=== PATIENT | female | born 1950 | race Caucasian/White ===

== ENCOUNTER 2016-09-17 15:16 | Emergency (ER) | payer OTHER ==
[2016-09-17 14:59] LABS: BASOPHIL# 0.1 X10e3 (0-0.3); BASOPHIL% 1.5 % (0-2.5); DIFF IND NO; EOSINOPHIL# 0.1 X10e3 (0-0.7); EOSINOPHIL% 1.9 % (0.0-7.0); HEMOGLOBIN 13.3 gm/dL (12.0-16.0); LYMPHOCYTE# 1.7 X10e3 (1.0-3.5); LYMPHOCYTE% 23.3 % (17.0-45.0); MEAN CELL VOLUME 86.9 FL (83-96); MEAN CORPUSCULAR HEMOGLOBIN 28.2 PG (28-34); MEAN CORPUSCULAR HGB CONC 32.4 g/dL (30-36); MEAN PLATELET VOLUME 9.6 FL (6.5-11.5); MONOCYTE# 0.2 X10e3 (0-1.0); MONOCYTE% 3.2 % (3.0-12.0); NEUTROPHIL# 5.1 X10e3 (1.5-7.1); NEUTROPHIL% 70.1 % (40-75); PLATELET COUNT 167 X10e3 (140-420); RED BLOOD COUNT 4.72 X10e (3.90-5.30); WHITE BLOOD COUNT 7.2 X10e3 (4.0-10.5)
[~2016-09-17 15:16] MED LIST: ADDERALL20 MG PO; ASPIRIN EC81 M1 PO; CYCLOBENZAPRINE5 MG PO; DEXILANT30 MG PO; GABAPENTIN600 MG PO; HYDRALAZINE HCL50 MG PO; HYDROCODON-ACE1 EAC5 PO; IMDUR-ER60 MG PO; INSULIN DETEMIR; INVOKANA300 MG PO; K-DUR20 ME1 PO; K-DUR20 ME2 PO; KLONOPIN0.5 MG PO; LASIX PO; LEVEMIR SQ; LEVEMIR100 U/ML SUBQ; LIPITOR20 MG PO; LISINOPRIL10 MG PO; LISINOPRIL20 MG PO; LOPRESSOR PO; METOPROLOL TAR25 MG PO; MS CONTIN100 MG PO; MUCINEX DM ER1 EACH PO; NEURONTIN300 MG PO; NOVOLOG; NOVOLOG100 U/ML; NOVOLOG100 UNITS/; PRINIVIL40 MG PO; WELLBUTRIN SR150 MG PO
[2016-09-17 15:28] LABS: BLOOD UREA NITROGEN 13 mg/dL (9-23); BUN/CREATININE RATIO 16.25; CALCIUM SERUM 9.5 mg/dL (8.4-10.2); CARBON DIOXIDE 25 mmol/L (22-31); CHLORIDE 105 mmol/L (100-111); CREATININE SERUM 0.8 mg/dL (0.6-1.4); GLOM FILT RATE Estimated ABOVE60 mL/min (>60); GLUCOSE FASTING 136 mg/dL (70-110); POTASSIUM 3.8 mmol/L (3.5-5.1); SODIUM 141 mmol/L (135-145)
[2016-09-17 16:47] LABS: URINE SOURCE CLEAN CATCH
[2016-09-17 17:05] LABS: URINE APPEARANCE CLEAR; URINE BILIRUBIN NEG (NEG); URINE BLOOD NEG (NEG); URINE COLOR YELLOW; URINE GLUCOSE >1000 MG/DL (NEG); URINE KETONE NEG (NEG); URINE LEUKOCYTE ESTERASE 1+ (NEG); URINE NITRATE NEG (NEG); URINE PH 5.5 (5-8); URINE PROTEIN NEG (NEG); URINE SPECIFIC GRAVITY 1.016 (1.003-1.035); URINE UROBILINOGEN 0.2 MG/DL (NEG)
[2016-09-17 17:11] LABS: CULTURE INDICATED? YES; URBCS1 AUWI 0-2 /[HPF] (0-2); URINE BACTERIA AUWI NEG (NEGATIVE); URINE SQUAMOUS EPITHELIAL CELL NONE SEEN /[HPF]
== END 2016-09-17 19:12 | disposition home or self-care (01) ==
LOC: CED 15:16
PROVIDERS: Emergency Medicine
DX: T38.3X1A Poisoning by insulin and oral hypoglycemic [antidiabetic] drugs, accidental (unintentional), initial encounter (principal); N30.90 Cystitis, unspecified without hematuria; I10 Essential (primary) hypertension; E78.5 Hyperlipidemia, unspecified; K21.9 Gastro-esophageal reflux disease without esophagitis; E11.9 Type 2 diabetes mellitus without complications; Z90.49 Acquired absence of other specified parts of digestive tract; Z90.710 Acquired absence of both cervix and uterus; Z98.890 Other specified postprocedural states; Y92.9 Unspecified place or not applicable
CPT/HCPCS: 36415; 80048; 81003; 82947; 85025; 87086; 99283

== ENCOUNTER 2017-02-20 23:41 | Observation (INO) | payer MEDICARE ==
[~2017-02-20] VITALS: Ht 157.5 cm; Wt 95.3 kg
--- NOTE | ~2017-02-20 | CO ---
Unit #: [id number] #: [id number] Patient: BERTIN HUERTA [id number] [facility] [address], [place] [address] [id number] MR#: [id number] NAME: BERTIN HUERTA. ROOM: 553 Age: 66 Sex: F Admission Date: 02/21/2017 : 1950 Attending Physician: Jovan Lowery M.D. Primary Care Physician: [facility] Consultation Date: 02/23/2017 CONSULTATION REPORT REASON FOR CONSULTATION Followup. DISCUSSION Ms. Stevenson is a 66-year-old white female, seen in room 553, bed 1 on 02/23/2017 [facility]. The patient reports making progress, sleeping good, decrease in anxiety. The patient denied any thoughts of harming to self or others or any psychotic symptom. The patient denied any problem with sleep or any side effects from medication. Vital signs; temperature 98.1, pulse 68, respirations 18, blood pressure 123/61, and oxygen saturation 98%. REVIEW OF SYSTEMS A complete review of systems is unremarkable. MENTAL STATUS EXAMINATION General appearance; the patient dressed casually, lying comfortably in bed, dressed in hospital attire. Attention span and concentration, fair. Speech, regular rate and coherent. Oriented in time, place, and person. Mood and affect; sad, dysphoric, but able to smile appropriately. Thought process, coherent. Thought content, the patient denied any thoughts of harming to self or others. Recent and remote memory, fair. Language, intact. Fund of knowledge, fair. Insight and judgment, fair to slightly impaired. DIAGNOSES Psychiatric: Major depressive disorder, recurrent, severe, F33.2; anxiety disorder, not otherwise specified, F40.01. ASSESSMENT/PLAN 1. Supportive psychotherapy and psychoeducation provided to the patient. 2. Educated about benefits and side effects of medication and course and prognosis of illness. 3. Advised to continue with current medication and the patient to follow up with the outpatient psychiatrist and also given information about [facility] outpatient program, telephone #[phone]. Please feel free to call if any questions, telephone #[phone]. Dictated by... Edgar Lozada/merry Unit #: [id number] #: [id number] Patient: BERTIN HUERTA TD: 02/24/2017 08:31 JOB #: [id number] CONSULTATION REPORT Page 1 of 1 X Ki Cheng MD X CONSULTATION REPORT
--- NOTE | ~2017-02-20 | DS ---
Unit #: [id number] #: [id number] Patient: BERTIN HUERTA [id number] [address] [address] [id number] I MR#: [id number] NAME: BERTIN HUERTA. ROOM: 553 Age: 66 Sex: F Admission Date: 02/21/2017 : 1950 Discharge Date: 02/23/2017 Attending Physician: Jovan Lowery M.D. Primary Care Physician: [facility]. DISCHARGE SUMMARY DISCHARGE DIAGNOSES 1. Resting and exertional angina, ruled out for myocardial infarction. 2. Coronary artery disease, status post cardiac catheterization on 02/22/[address] Lowery, which revealed LV normal. Left main normal. LAD 100% at first septal compensation expert. LARA to LAD patent with small, but normal distal vessel. Mid left circumflex 60% to 70%. Patent stent in the second obtuse marginal. Mid right coronary artery 50%. PDA less than 2 mm in size with 80% stenosis. Saphenous vein graft to first diagonal patent. Saphenous vein graft to second diagonal patent. Medical management. If pain continues, the patient could be considered for a stress Cardiolite. If distribution of ischemia, could undergo PCI and stent in the mid left circumflex. 3. Previous coronary artery bypass grafting x3 after myocardial infarction, November 2012. Previous PCI and stent in the obtuse marginal in 2014. 4. Acute on chronic systolic congestive heart failure, not compensated. 5. Hypertension. 6. Hyperlipidemia. 7. Diabetes mellitus type 2. 8. Obesity with a BMI of 40. 9. Hypokalemia, resolved. 10. Major depressive disorder. 11. Anxiety. 12. History of cardiac ablation, 2006. DISCHARGE MEDICATIONS 1. Neurontin 600 mg p.o. t.i.d. 2. Amitriptyline 25 mg take 2 tabs by mouth daily. 3. Wellbutrin 150 mg p.o. daily. 4. Lexapro 10 mg p.o. at bedtime. 5. Atorvastatin 80 mg p.o. at bedtime. 6. KlonoPIN 0.5 mg p.o. p.r.n. 7. Norvasc 5 mg p.o. daily. 8. Metoprolol tartrate 50 mg p.o. b.i.d. 9. Lasix 40 mg p.o. daily. 10. Mucinex 120 mg p.o. b.i.d. 11. Hydralazine 50 mg p.o. q.i.d. 12. Lisinopril 40 mg p.o. daily. 13. Levemir to be dosed by Dr. Rodriguez with endocrinology. 14. NovoLog to be dosed by Dr. Rodriguez with endocrinology. 15. Aspirin 81 mg p.o. daily. 16. Hydrocodone/acetaminophen 10 mg p.o. q.i.d. as needed for pain. 17. Ranexa 500 mg p.o. b.i.d. 18. Effient 10 mg p.o. daily. Unit #: [id number] #: [id number] Patient: BERTIN HUERTA 19. Dexilant 30 mg p.o. daily. 20. Potassium chloride 20 mEq p.o. daily. 21. Imdur ER 60 mg p.o. daily. 22. Nitroglycerin 0.4 mg sublingual as needed for chest pain. HOSPITAL COURSE This is a 66-year-old white female known to Dr. Quispe with a past medical history of coronary artery disease with a previous myocardial infarction, status post coronary artery bypass grafting x3 in 2012. The patient had a cardiac catheterization in 2014 where her grafts were patent. She did have a 99% stenosis in the posterior marginal branch of the left circumflex and underwent angioplasty and drug-eluting stent placement. Additional past medical history includes hypertension, hyperlipidemia, and diabetes. There is also reports of cardiac ablation in 2006. The patient presented to the hospital with complaints of chest pain and jaw pain. Please see details in H and P. She also had some shortness of breath and occasional lower extremity edema. Initial cardiac enzymes were negative. EKG revealed no acute findings, but there was an old inferior infarct. She was admitted for angina and worry for progression of coronary artery disease. Cardiac enzymes were trended and she ruled out for myocardial infarction. She was anticoagulated with Lovenox in addition to aspirin and Effient. She was placed on fluid restriction and IV diuretics due to volume overload and acute on chronic congestive heart failure. Her statin was increased to full dose. Dr. Rodriguez was consulted for hyperglycemia and diabetes. Dr. Cheng was consulted for anxiety and depression and her medications were adjusted. Her potassium was initially low and supplemented. Potassium level improved. She was placed on nitrates in addition to the above medications. She was recommended for cardiac catheterization. She underwent cardiac catheterization on 02/22/2017. Please see details above. She was found to have 60% to 70% stenosis in the mid left circumflex. Mid right coronary artery was 50%. PDA was 80%, but less than 2 mm in size. She was continued on medical management. If chest pain continues, she could undergo a Cardiolite stress test. If distribution of ischemia, she could undergo PCI and stent to the mid left circumflex. Patient tolerated the procedure well without complication. She was kept overnight for observation. Her Lasix was changed to oral dosing and her congestive heart failure is now compensated. There are no complaints of chest pain or shortness of breath. Her right groin is soft without hematoma. Telemetry reveals no sustained arrhythmias. She was started on Ranexa to prevent angina. She is also on oral nitrates. One month of samples for Ranexa will be provided to the patient. She is stable and will be discharged home today. Dr. Rodriguez with endocrinology will need to review her insulin dosing. She is instructed to follow up with Dr. Rodriguez in 2-4 weeks as well as Dr. Quispe on March 24 at 1:30 p.m. She can follow with psychiatry at [facility] or her provider of choice. Post cath instructions have been provided and she verbalizes understanding. Medications have been discussed as well. Patient is in stable condition for discharge. CONSULTANTS 1. Dr. Cheng with psychiatry. 2. Dr. Rodriguez with endocrinology. DIAGNOSTIC STUDIES Unit #: [id number] #: [id number] Patient: BERTIN HUERTA LABORATORY: White blood cell count 6.8, hemoglobin 13.2, hematocrit 39.5, platelets 145. Sodium 140, potassium 4.5, chloride 104, CO2 25, BUN 20, creatinine 0.9, glucose 278. BNP 55. Hemoglobin A1c 8.4. INR 1. Troponin 0.05 and 0.05. IMAGING: Chest x-ray on 02/21/2017 revealed stable cardiomegaly with elevation of right hemidiaphragm. CARDIOVASCULAR: Electrocardiogram reveals sinus rhythm with a ventricular rate of 67 beats per minute. No acute ST or T wave changes. QTC mildly prolonged at 523 milliseconds. PHYSICAL EXAMINATION VITAL SIGNS: Temperature 98.1, pulse 68, blood pressure 123/61. CONSTITUTIONAL: This is a 66-year-old, white female in no acute distress. SKIN: Warm and dry. NECK: Supple. No jugular vein distention. No hepatojugular reflux. Normal carotid upstrokes. No carotid bruits auscultated. HEART: S1 and S2. Regular rate and rhythm. No murmurs, rubs, or gallops. LUNGS: Bilateral breath sounds have good air entry throughout lung carias. Respirations even and unlabored. No rales, rhonchi, or wheezes. ABDOMEN: Obese, soft, nontender, and nondistended. Positive bowel sounds auscultated in four quadrants. No ascites noted. EXTREMITIES: Bilateral extremities have no pretibial pitting edema. DP pulses are 2+. Capillary refill two seconds. DISCHARGE INSTRUCTIONS 1. Patient will be discharged home today. 2. Follow up with primary care in 1-2 weeks. 3. Follow up with Dr. Rodriguez in 2-4 weeks. 4. Follow up with psychiatry as needed. 5. Follow up with Dr. Quispe on March 24 at 1:30 p.m. 6. Post cath instructions provided. 7. The patient will be provided one month of samples for Ranexa. 8. She has been instructed to seek medical attention for worsening chest pain. 9. She has been advised to exercise 30 minutes a day, 5 days a week. 10. She would benefit from weight loss. 11. The patient would benefit from hemoglobin A1c in 3 months. Dictated by... Vane Auguste APRN for Edgar Samayoa TD: 02/25/2017 07:41 JOB #: [id number] Unit #: [id number] #: [id number] Patient: BERTIN HUERTA DISCHARGE SUMMARY Page 1 of 1 X X DISCHARGE SUMMARY
--- NOTE | ~2017-02-20 | CO ---
Unit #: [id number] #: [id number] Patient: BERTIN HUERTA [id number] [address] [address] [id number] I MR#: [id number] NAME: BERTIN HUERTA. ROOM: [facility] Age: 66 Sex: F Admission Date: 02/21/2017 : 1950 Attending Physician: Jovan Lowery M.D. Primary Care Physician: [facility]. CONSULTATION REPORT REASON FOR CONSULT Uncontrolled diabetes mellitus. This 66-year-old female, who has a history of coronary artery disease status post CABG x3, morbid obesity, hypertension, hyperlipidemia, fibromyalgia, chronic pain syndrome, has been admitted with chest tightness and dyspnea on exertion, unable to walk even some mild distances. During her stay in the hospital, her blood sugar has been elevated. I have been asked to see the patient for further management. MEDICAL HISTORY See HPI. PAST SURGICAL HISTORY 1. CABG. 2. Carpal tunnel surgery. 3. Tonsillectomy. 4. Hysterectomy. 5. Cholecystectomy. 6. Cervical spine fusion x2. SOCIAL HISTORY The patient is . Quit tobacco 30 years ago. Declines alcohol. FAMILY HISTORY Coronary artery disease. ALLERGIES None known. MEDICATIONS Medication list is reviewed. The patient has been takin. Lantus 68 units twice daily. 2. NovoLog per sliding scale. 3. Aspirin 81 mg daily. 4. Lipitor 20 mg daily. 5. Wellbutrin 300 mg daily. 6. Clonazepam. 7. Dexilant. 8. Furosemide. 9. Neurontin. 10. Hydralazine. 11. Imdur 60 mg daily. 12. Lisinopril 40 mg daily. Unit #: [id number] #: [id number] Patient: BERTIN HUERTA 13. Metoprolol. 14. Potassium. 15. Effient. REVIEW OF SYSTEM CONSTITUTIONAL: No fever or chills. CARDIAC: No chest pain, palpitations. HEENT: Pupils equal, reactive to light. RESPIRATION: Shortness of air on exertion. No cough or sputum. GI: No nausea, vomiting, abdominal pain. : No frequency, dysuria. PHYSICAL EXAMINATION GENERAL: She is awake, alert, oriented to time, place and person. VITAL SIGNS: Stable, afebrile. HEENT: EOMI. Pupils equally react to light. NECK: Supple. No thyromegaly noted. CHEST: Good air entry. CVS: Regular rhythm. S1 and S2. No murmurs. ABDOMEN: Soft, obese. Bowel sounds positive. EXTREMITIES: No edema noted. DIAGNOSTIC STUDIES LABORATORY: Labs were reviewed. A1c is not available. BUN and creatinine within normal limits. Calcium is 9.1, potassium 4.5. ASSESSMENT 1. Type 2 diabetes mellitus, uncontrolled. 2. Coronary artery disease, status post CABG and stent placement. 3. Morbid obesity. PLAN Will start patient on Levemir 50 units subcu twice daily. Add NovoLog 10 units each meal to cover with supplemental sliding scale. Accu-Cheks a.c. and h.s. She is definitely a good candidate for metformin which can be added 48 hours after the discharge since patient had a cardiac cath done today. Thanks. Will continue to follow the patient for further management. Dictated by... Edgar Vazquez/yamilex TD: 02/23/2017 10:20 JOB #: [id number] Unit #: [id number] #: [id number] Patient: BERTIN HUERTA CONSULTATION REPORT Page 1 of 1 X Augusta Rodriguez MD X CONSULTATION REPORT
--- NOTE | ~2017-02-20 | EKG ---
PATIENT: BERTIN HUERTA UNIT #: [id number] Ventricular Rate: 67 BPM Atrial Rate: 67 BPM P-R Interval: 182 ms QRS Duration: 116 ms Q-T Interval: 486 ms QTC Calculation(Bezet): 513 ms P [place]: 42 degrees Calculated R [place]: -7 degrees Calculated T [place]: 31 degrees Diagnosis Line: Normal sinus rhythm Diagnosis Line: Prolonged QT Diagnosis Line: Abnormal ECG Diagnosis Line: When compared with ECG of 21-FEB-2017 07:56, Diagnosis Line: No significant change was found Diagnosis Line: Confirmed by SAKSHI SANTOS MD ([id number]) on 02/22/2017 Diagnosis Line: 6:28:24 PM INTERPRETING MD: TOM GOMES
--- NOTE | ~2017-02-20 | HP ---
Unit #: [id number] #: [id number] Patient: BERTIN HUERTA [id number] [address] [place], [place] [address] [id number] I MR#: [id number] NAME: BERTIN HUERTA ROOM: 553 Age: 66 Sex: F Admission Date: 02/21/2017 : 1950 Attending Physician: Angelica Lowery M.D. Primary Care Physician: [facility]. HISTORY AND PHYSICAL HISTORY OF PRESENT ILLNESS This is a 66-year-old white female who is known to Dr. Quispe who has a history of coronary artery disease where she had a myocardial infarction in 2012 and underwent coronary artery bypass graft x3. Her last cardiac catheterization was in 2014 where her grafts were found to be patent. She had 99% stenosis of the posterior marginal branch of the circumflex artery and underwent angioplasty with drug-eluting stent. At that time, the right coronary had 70% distal stenosis that was not dilated. She is known to have hypertension, hyperlipidemia, and cardiac ablation in 2006. The patient comes to the emergency room with the complaint of chest and jaw pain. She said she has had jaw pain for the past two days that has been intermittent. Her jaw pain was worse last night. She woke up from sleep at approximately 10 p.m. and had left anterior chest heaviness with tightness that she states felt like a "belt" was around her chest. She has associated dyspnea, nausea, and bilateral jaw pain. She has been unable to walk any distance or do any chores around the house because of shortness of breath and weakness. Her last episode was when she walked across the street to get the mail and became so weak and dyspneic that she had to stop to rest. She has occasional lower extremity edema and occasional palpitations, but denies paroxysmal nocturnal dyspnea or orthopnea. She has been sleeping upright in a recliner recently. Because her chest pain was ongoing, she came to the emergency room for evaluation where she was treated with sublingual nitroglycerin that relieved her pain. Her troponin has been initially negative. Electrocardiogram shows no acute ischemic changes. EKG is noted for an old inferior infarct. PAST MEDICAL HISTORY 1. A 2D echocardiogram on April 15, 2014, showed an ejection fraction of 40% to 45% with mild to moderate mitral regurgitation. 2. Myocardial infarction in November 2012, status post coronary artery bypass graft x3. 3. Cardiac catheterization on May 21, 2015, showed left main normal, LAD had 99% proximal stenosis, patent sequential LARA to the LAD second diagonal branch, patent saphenous vein graft to the high diagonal branch, kake circumflex artery first marginal branch with 99% stenosis, patent saphenous vein graft to the first obtuse marginal branch, posterior marginal branch with 99% stenosis, distal right coronary artery with 70% and distal PDA 70%, and ejection fraction of 50% to 55%. 4. Status post PCI with drug-eluting stent to the posterior marginal branch of the circumflex artery May 21, 2015, per Dr. Lowery, at [facility]. 5. Hypertension. 6. Hyperlipidemia. Unit #: [id number] #: [id number] Patient: BERTIN HUERTA 7. Cardiac ablation in [address] Taylor, no details available. 8. Chronic pain syndrome. 9. Fibromyalgia. 10. Former smoker. PAST SURGICAL HISTORY 1. Coronary artery bypass grafting (1) in November 2012. 2. Carpal tunnel release. 3. Tonsillectomy. 4. Hysterectomy. 5. Cholecystectomy. 6. Thumb surgery. 7. Cervical spinal fusion x2. SOCIAL HISTORY Patient is . She quit smoking 30 years ago. She denies illicit drug and alcohol use. FAMILY HISTORY She had a brother who had a myocardial infarction in the past. ALLERGIES No known drug allergies. HOME MEDICATIONS 1. Amitriptyline 25 mg daily. 2. Aspirin 81 mg daily. 3. Lipitor 20 mg daily. 4. Wellbutrin 300 mg daily. 5. Clonazepam 0.5 mg b.i.d. 6. Dexilant 30 mg daily. 7. Furosemide 40 mg b.i.d. 8. Neurontin 600 mg t.i.d. 9. Guaifenesin 1200 mg b.i.d. 10. Hydralazine 50 mg q.i.d. 11. Hydrocodone and acetaminophen 10/325 q.i.d. p.r.n. 12. Imdur 60 mg daily. 13. Lisinopril 40 mg daily. 14. Metoprolol tartrate 25 mg b.i.d. 15. Potassium bicarbonate and citric acid 20 mg daily. 16. Effient 10 mg daily. REVIEW OF SYSTEMS CONSTITUTIONAL: Negative for fever or chills. Has no weight gain or weight loss. HEENT: No headache, hearing or visual changes, or difficulty with swallowing. Negative for dizziness. CARDIOVASCULAR: Has chest pain as described in the HPI. Reports occasional palpitations. No paroxysmal nocturnal dyspnea or orthopnea. Denies syncope or near syncope. RESPIRATORY: Reports dyspnea at rest that is worse on exertion. No cough or hemoptysis. GASTROINTESTINAL: Positive for nausea that accompanies chest pain. No hematochezia, hematemesis, or melena. Denies abdominal pain. EXTREMITIES: Occasional lower extremity edema. PHYSICAL EXAMINATION VITAL SIGNS: Blood pressure 154/72, heart rate 79, and temperature 97.5. Unit #: [id number] #: [id number] Patient: BERTIN HUERTA BMI is 40. GENERAL: This is a 66-year-old obese white female who is in no acute respiratory distress. NEUROLOGICAL: She is awake, alert, and oriented, without focal weaknesses. NECK: Trachea is midline. No thyromegaly or lymphadenopathy. No jugular venous distention. HEART: S1 and S2 heart sounds normal. No murmurs, rubs, or clicks. Regular rate and rhythm. LUNGS: With fine crackles at both lung bases. ABDOMEN: Soft and nontender with bowel sounds present. EXTREMITIES: Without leg edema. SKIN: Warm and dry. DIAGNOSTIC STUDIES LABORATORY: Glucose 236, BUN 19, creatinine 0.8, sodium 138, and potassium 3.2. Troponin less than 0.05 x2 and less than 0.03. BNP 55. White count 7, hemoglobin 13.1, hematocrit 39.2, and platelet count is 161,000. IMAGING: Chest x-ray noted for mild vascular congestion. CARDIOLOGY: EKG shows normal sinus rhythm with a rate of 72 beats per minute with Q-waves noted in the inferior leads with questionable old inferior infarct. QTc prolongation 494 msec. IMPRESSION 1. Rest and exertional angina. 2. Status post coronary artery bypass graft x3 after myocardial infarction in November 2012. 3. Percutaneous coronary intervention with stent to the OM in 2014. 4. Acute on chronic systolic heart failure. 5. Hypertension. 6. Hyperlipidemia. 7. Diabetes mellitus type 2. 8. Obesity. 9. Hypokalemia. PLAN 1. Patient's chest pain is worrisome for progression of her coronary artery disease. She has been ruled out for an acute myocardial infarction. Will need a cardiac catheterization to reevaluate her coronary anatomy. This has been discussed with the patient, and she is agreeable. 2. Anticoagulate with Lovenox in addition to aspirin and Effient. 3. Place the patient on fluid restriction and diurese with IV diuretics. 4. Will increase Lipitor to 80 mg daily. 5. Ask Dr. Rodriguez to see the patient for blood glucose control. 6. Ask Dr. Cheng to see for medication review. Amitriptyline will be discontinued. 7. Will start on nitrates. 8. Supplement potassium. 1. Dictated by Valdemar Eugene A.P.R.N. for Edgar Samayoa Unit #: [id number] #: [id number] Patient: BERTIN HUERTA TD: 02/21/2017 14:11 JOB #: [id number] HISTORY AND PHYSICAL Page 1 of 1 X Valdemar Eugene APRN X HISTORY AND PHYSICAL
--- NOTE | ~2017-02-20 | CO ---
Unit #: [id number] #: [id number] Patient: ELVA HUERTA [id number] [facility] [address] [place], [place] [address] [id number] MR#: [id number] NAME: ELVA HUERTA. ROOM: 553 Age: 66 Sex: F Admission Date: 02/21/2017 : 1950 Attending Physician: Jovan Lowery M.D. [facility] Consultation Date: 02/21/2017 CONSULTATION REPORT REASON FOR CONSULTATION Depression and anxiety. HISTORY OF PRESENT ILLNESS Ms. Elva Huerta is a 66-year-old white female, seen in room 553, bed 1 at [facility] on 02/21/2017. The patient reported that she was admitted for chest pain. Reports taking medication for depression and anxiety. Denied any suicidal or homicidal ideation, but reported under a lot of stress, severe anxiety. Currently, on Wellbutrin and Klonopin. Denied any use of any drugs or alcohol. Vital signs; temperature 97.6, heart rate 69, respirations 18, blood pressure 115/59, and oxygen saturation 97%. PAST PSYCHIATRIC HISTORY Remarkable for history of depression and anxiety. No history of any suicide attempt or any inpatient treatment. MEDICAL HISTORY Remarkable for history of myocardial infarction in 2013, CABG graft x3, cardiac cath, status post PCI, hypertension, hyperlipidemia, chronic pain syndrome, fibromyalgia, and myalgia. MEDICATIONS The patient is on amitriptyline, aspirin, Lipitor, Wellbutrin 300 mg daily, Klonopin 0.5 mg b.i.d., Dexilant, furosemide, Neurontin, hydralazine, lisinopril, and metoprolol. FAMILY HISTORY AND SOCIAL HISTORY The patient has a good support system. Reported multiple stressors at home. Denied any history of abuse. No history of any substance abuse. REVIEW OF SYSTEMS Complete review of systems is unremarkable except as mentioned above. MENTAL STATUS EXAMINATION Vital signs, please see above. General appearance, the patient dressed casually. Attention span and concentration, fair. Speech, regular rate. Oriented in time, place, and person. Mood and affect; sad, dysphoric, anxious. Thought process, coherent. Thought content, the patient denied any thoughts of harming self or others. Recent and remote memory, fair. Language, intact. Fund of knowledge, fair. Insight and judgment, fair to slightly impaired. DIAGNOSES Unit #: [id number] #: [id number] Patient: ELVA HUERTA Psychiatric: Major depressive disorder, recurrent, severe, F33.2; anxiety disorder, not otherwise specified, F40.01. ASSESSMENT/PLAN 1. Supportive psychotherapy and psychoeducation provided to the patient. 2. Educated about benefits and side effects of medication and course and prognosis of illness. 3. Recommending at this time to cut back on the dosage of Wellbutrin to 150 mg in the morning and add Lexapro 10 mg daily for depression and anxiety. Continue with the Klonopin. If needed, we will make further adjustment. Please feel free to call if any question, telephone #[phone]. The patient was also given information about outpatient program at [facility] #[phone]. Dictated by... Edgar Lozada/merry TD: 02/21/2017 22:53 JOB #: [id number] CONSULTATION REPORT Page 1 of 1 X Ki Cheng MD X CONSULTATION REPORT
--- NOTE | ~2017-02-20 | EKG ---
PATIENT: BERTIN HUERTA UNIT #: [id number] Ventricular Rate: 67 BPM Atrial Rate: 67 BPM P-R Interval: 178 ms QRS Duration: 114 ms Q-T Interval: 458 ms QTC Calculation(Bezet): 483 ms P [place]: 25 degrees Calculated R [place]: -16 degrees Calculated T [place]: 59 degrees Diagnosis Line: Normal sinus rhythm Diagnosis Line: Cannot rule out , old Inferior infarct Diagnosis Line: Nonspecific T wave abnormality Diagnosis Line: Abnormal ECG Diagnosis Line: When compared with ECG of 22-MAY-2015 08:15, Diagnosis Line: No significant change was found Diagnosis Line: Confirmed by SAKSHI SANTOS MD ([id number]) on 02/21/2017 Diagnosis Line: 3:10:09 PM INTERPRETING MD: TOM GOMES
--- NOTE | ~2017-02-20 | EKG ---
PATIENT: BERTIN HUERTA UNIT #: [id number] Ventricular Rate: 72 BPM Atrial Rate: 72 BPM P-R Interval: 178 ms QRS Duration: 112 ms Q-T Interval: 452 ms QTC Calculation(Bezet): 494 ms P [place]: 39 degrees Calculated R [place]: -15 degrees Calculated T [place]: 32 degrees Diagnosis Line: Normal sinus rhythm Diagnosis Line: Nonspecific ST abnormality Diagnosis Line: Abnormal ECG Diagnosis Line: When compared with ECG of 20-FEB-2017 23:47, Diagnosis Line: (unconfirmed) Diagnosis Line: Nonspecific T wave abnormality no longer evident Diagnosis Line: in Anterolateral leads Diagnosis Line: Confirmed by SAKSHI SANTOS MD ([id number]) on 02/21/2017 Diagnosis Line: 3:16:08 PM INTERPRETING MD: TOM GOMES
--- NOTE | ~2017-02-20 | CR72 ---
[facility] A Service of [facility] RADIOLOGY TEXT RESULTS PATIENT: BERTIN HUERTA LOCATION: [place] [address]- : [birth year] UNIT #: [id number] AGE: [address]: Jovan Lowery MD SEX: F ORDER DR: [id number] [facility] [address] [place], [place] [address] [id number] I MR#: [id number] Acc #: [id number] NAME: BERTIN HUERTA. : 1950 SEX: F STUDY DATE/TIME: 02/21/2017 0113 UNIT: [facility] ROOM: [place] [facility] STUDY DESCRIPTION: CR Chest Single View Portable Attending Physician: Angelica Lowery M.D. Ordering Physician: Pee Roldan M.D. [facility] REPORT This report is preliminary unless electronic signature is present EXAM Portable chest, 02/21 at 0113 hours. INDICATION Cough, congestion, and shortness of air today. FINDINGS AP portable chest compared with 05/19/2015. 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 Lungs are clear. No pneumothorax. There is some elevation of the right hemidiaphragm, unchanged. Patient is status post cervical fusion. IMPRESSION Stable cardiomegaly with elevation of the right hemidiaphragm. No acute findings. Dictated by... Michael Caceres Jr., M.D. THIS IS AN ELECTRONICALLY VERIFIED REPORT Michael Caceres Jr., M.D. at 02/22/2017 3:13 AM SHANTELL/caryl TD: 02/21/2017 20:46 JOB #: [id number] MEDICAL IMAGING REPORT Page 1 of 1 COPY
--- NOTE | ~2017-02-20 | CO ---
Unit #: [id number] #: [id number] Patient: ELVA MENA [id number] [facility] [address] [place], [place] [address] [id number] I MR#: [id number] NAME: ELVA MENA ROOM: 553 Age: 66 Sex: F Admission Date: 02/21/2017 : 1950 Attending Physician: Jovan Lowery M.D. Primary Care Physician: [facility]. Consultation Date: 02/22/2017 CONSULTATION REPORT REASON FOR CONSULTATION Followup. DISCUSSION Ms. Elva Mena is a 66-year-old female seen in room 553, bed 1, on 02/22/17 at [facility]. The patient reports that she had a cardiac cath this morning and unable to place stent, as the opening was small, and will be treated with medicine. The patient seems to be in good spirits. Seems somewhat anxious and nervous but denied any suicidal or homicidal ideation. Mood is sad, depressed. The patient's vital signs - 98, 67, 18, 120/63, oxygen saturation 97%. The patient was informed about the change in medication yesterday. REVIEW OF SYSTEMS A complete review of systems is unremarkable. MENTAL STATUS EXAMINATION General appearance - Patient is dressed casually. Attention span, concentration - Fair. Speech - Regular rate, coherent. Oriented to time, place and person. Mood and affect - Sad, dysphoric, anxious. Labile. Thought process - Coherent. Thought content - The patient denied any thoughts of harming self or others or any psychotic symptoms. Recent and remote memory - Fair. Language - Intact. Fund of knowledge - Fair. Insight and judgment - Fair to slightly impaired. DIAGNOSIS PSYCHIATRIC: Major depressive disorder, recurrent, severe, F33.2; anxiety disorder, NOS, F40.01. ASSESSMENT AND PLAN 1. Supportive psychotherapy and psychoeducation provided to the patient. 2. Educated about benefits and side effects of medication and course and prognosis of illness. 3. Advised to continue with Wellbutrin XL 150 mg in the morning, Lexapro 10 mg daily and Klonopin 0.5 mg b.i.d. combination. Please feel free to call with any questions, telephone number . Dictated by... Ki Cheng M.D. Unit #: [id number] #: [id number] Patient: ELVA MENA SMILEY/crispin TD: 02/22/2017 16:07 JOB #: [id number] CONSULTATION REPORT Page 1 of 1 X Ki Cheng MD X CONSULTATION REPORT
[2017-02-21 00:52] LABS: BASOPHIL% 0.2 % (0-2.5); EOSINOPHIL# 0.1 X10e3 (0-0.7); EOSINOPHIL% 1.9 % (0.0-7.0); HEMATOCRIT 40.3 % (35.0-45.0); HEMOGLOBIN 13.3 gm/dL (12.0-16.0); LYMPHOCYTE% 26.2 % (17.0-45.0); MEAN CELL VOLUME 85.3 FL (83-96); MEAN CORPUSCULAR HEMOGLOBIN 28.2 PG (28-34); MEAN CORPUSCULAR HGB CONC 33.1 g/dL (30-36); MEAN PLATELET VOLUME 9.1 FL (6.5-11.5); MONOCYTE# 0.4 X10e3 (0-1.0); MONOCYTE% 5.4 % (3.0-12.0); NEUTROPHIL% 66.3 % (40-75); PLATELET COUNT 169 X10e3 (140-420); RED BLOOD COUNT 4.72 X10e (3.90-5.30); WHITE BLOOD COUNT 7.5 X10e3 (4.0-10.5)
[2017-02-21 00:54] LABS: DIFF IND NO
[2017-02-21 00:55] LABS: POC - CKMB 1.6 ng/mL (0.0-7.9); POC - TROPONIN <0.05 ng/mL (<=0.05)
[2017-02-21 00:56] LABS: PARTIAL THROMBOPLASTIN TIME 29.5 SECONDS (23.5-31.3); PROTHROMBIN TIME (PATIENT) 10.6 SECONDS (10.0-11.7)
[2017-02-21 01:11] LABS: CALCIUM SERUM 9.3 mg/dL (8.4-10.2); CREATININE SERUM 0.8 mg/dL (0.6-1.4); GLOM FILT RATE Estimated 77.4 mL/min (>60); POTASSIUM 3.5 mmol/L (3.5-5.1)
[2017-02-21 02:24] LABS: POC - TROPONIN <0.05 ng/mL (<=0.05)
[2017-02-21] MEDS ORDERED: ASPIRIN81 M2 PO (03:46)
[2017-02-21] MEDS ORDERED: AMITRYPTYLINE PO (03:46)
[2017-02-21] MEDS ORDERED: BUPROPION XL300 MG PO (03:48)
[2017-02-21] MEDS ORDERED: LIPITOR20 MG PO (03:48)
[2017-02-21] MEDS ORDERED: DEXILANT30 MG PO (03:49)
[2017-02-21] MEDS ORDERED: KLONOPIN0.5 M1 PO (03:49)
[2017-02-21] MEDS ORDERED: NEURONTIN600 MG PO (03:50)
[2017-02-21] MEDS ORDERED: LASIX PO (03:50)
[2017-02-21] MEDS ORDERED: MUCINEX1200 MG PO (03:52)
[2017-02-21] MEDS ORDERED: HYDRALAZINE HCL50 MG PO (03:53)
[2017-02-21] MEDS ORDERED: HYDROCODON-ACE1 EAC5 PO (03:54)
[2017-02-21] MEDS ORDERED: IMDUR-ER60 M2 PO (03:54)
[2017-02-21] MEDS ORDERED: ZESTRIL40 MG PO (03:55)
[2017-02-21] MEDS ORDERED: METOPROLOL TART25 MG PO (03:56)
[2017-02-21] MEDS ORDERED: EFFER-K 20 MEQ20 MEQ PO (03:57)
[2017-02-21] MEDS ORDERED: EFFIENT10 MG PO (03:57)
[2017-02-21 07:16] LABS: BASOPHIL% 0.3 % (0-2.5); EOSINOPHIL# 0.1 X10e3 (0-0.7); EOSINOPHIL% 1.8 % (0.0-7.0); HEMATOCRIT 39.2 % (35.0-45.0); HEMOGLOBIN 13.1 gm/dL (12.0-16.0); LYMPHOCYTE# 2.2 X10e3 (1.0-3.5); MEAN CELL VOLUME 84.9 FL (83-96); MEAN CORPUSCULAR HEMOGLOBIN 28.4 PG (28-34); MEAN CORPUSCULAR HGB CONC 33.5 g/dL (30-36); MONOCYTE# 0.3 X10e3 (0-1.0); MONOCYTE% 4.4 % (3.0-12.0); NEUTROPHIL# 4.3 X10e3 (1.5-7.1); NEUTROPHIL% 61.5 % (40-75); PLATELET COUNT 161 X10e3 (140-420); RED BLOOD COUNT 4.61 X10e (3.90-5.30); RED CELL DISTRIBUTION WIDTH 17.2 % (11.0-15.5)
[2017-02-21 07:18] LABS: DIFF IND NO
[2017-02-21 07:49] LABS: BUN/CREATININE RATIO 23.75; CREATININE SERUM 0.8 mg/dL (0.6-1.4); GLOM FILT RATE Estimated 77.4 mL/min (>60); POTASSIUM 3.2 mmol/L (3.5-5.1)
[2017-02-22 11:10] LABS: HEMATOCRIT 39.5 % (35.0-45.0); HEMOGLOBIN 13.2 gm/dL (12.0-16.0); MEAN CELL VOLUME 85.5 FL (83-96); MEAN CORPUSCULAR HEMOGLOBIN 28.6 PG (28-34); MEAN CORPUSCULAR HGB CONC 33.5 g/dL (30-36); MEAN PLATELET VOLUME 9.1 FL (6.5-11.5); RED BLOOD COUNT 4.62 X10e (3.90-5.30); RED CELL DISTRIBUTION WIDTH 17.1 % (11.0-15.5); WHITE BLOOD COUNT 6.8 X10e3 (4.0-10.5)
[2017-02-22 11:19] LABS: PARTIAL THROMBOPLASTIN TIME 29.5 SECONDS (23.5-31.3); PROTHROMBIN TIME (PATIENT) 10.9 SECONDS (10.0-11.7)
[2017-02-22 11:31] LABS: BUN/CREATININE RATIO 22.22; CALCIUM SERUM 9.1 mg/dL (8.4-10.2); CREATININE SERUM 0.9 mg/dL (0.6-1.4); GLOM FILT RATE Estimated 67.1 mL/min (>60); POTASSIUM 4.5 mmol/L (3.5-5.1)
[2017-02-23] MEDS ORDERED: LANTUS SOL100 UNIT/1 SUBQ (16:18)
[2017-02-23] MEDS ORDERED: NOVOLOG100 UNITS/ SUBQ ×2 (16:19→19:40)
[2017-02-23] MEDS ORDERED: LANTUS100 UNITS/ SUBQ (19:39)
[2017-02-23] MEDS ORDERED: LOPRESSOR PO (19:42)
[2017-02-23] MEDS ORDERED: WELLBUTRIN XL150 M1 PO (19:47)
[2017-02-23] MEDS ORDERED: LEXAPRO PO (19:48)
[2017-02-23] MEDS ORDERED: LIPITOR80 MG PO (19:49)
[2017-02-23] MEDS ORDERED: NORVASC PO (19:49)
[2017-02-23] MEDS ORDERED: RANEXA500 MG PO (19:50)
[2017-02-23] MEDS ORDERED: METFORMIN HCL500 M1 PO (19:52)
[2017-02-23] MEDS ORDERED: NITROGLYCERIN0.4 MG SL (19:52)
== END 2017-02-23 20:47 | disposition home or self-care (01) ==
LOC: CED 23:41 → CEDOF 02-21 01:36 → C5B 02-21 01:36 → CEDOF 02-21 03:10 → C5B 02-21 04:51
PROVIDERS: Emergency Medicine; Internal Medicine Cardiovascular Disease
DX: I25.118 Atherosclerotic heart disease of native coronary artery with other forms of angina pectoris (principal); I11.0 Hypertensive heart disease with heart failure; I50.23 Acute on chronic systolic (congestive) heart failure; Z95.5 Presence of coronary angioplasty implant and graft; Z95.1 Presence of aortocoronary bypass graft; E78.5 Hyperlipidemia, unspecified; E66.01 Morbid (severe) obesity due to excess calories; Z68.41 Body mass index [BMI] 40.0-44.9, adult; E87.6 Hypokalemia; F33.2 Major depressive disorder, recurrent severe without psychotic features; F41.9 Anxiety disorder, unspecified; I25.2 Old myocardial infarction; E11.65 Type 2 diabetes mellitus with hyperglycemia; Z79.4 Long term (current) use of insulin; Z82.49 Family history of ischemic heart disease and other diseases of the circulatory system
CPT/HCPCS: 36415; 71010; 80048; 82553; 82947; 83036; 83880; 84484; 85025; 85027; 85610; 85730; 93005; 96374; 96375; 99152; 99153; 99285; C1769; C1887; G0378; J1644; J1650; J1815; J1940; J2250; J3010